=== PATIENT | female | born 2000 | race Caucasian/White ===

== ENCOUNTER 2020-07-21 14:16 | Emergency (ER) | payer OTHER, SELFPAY ==
[2020-07-21 14:25] VITALS: BP 124/85; PULSE 63; RESP 14; TEMP 36.6; O2SAT 99; BMI 23.1
--- NOTE | 2020-07-21 14:43 | CTR_ITS ---
PROCEDURE INFORMATION: Exam: CT Abdomen And Pelvis Without Contrast Exam date and time: 07/21/2020 2:55 PM Age: 20 years old Clinical indication: Right-sided abdominal pain. Right flank pain radiating to the groin. Prior cholecystectomy and appendectomy. TECHNIQUE: Imaging protocol: Computed tomography of the abdomen and pelvis without contrast. Radiation optimization: All CT scans at this facility use at least one of these dose optimization techniques: automated exposure control; mA and/or kV adjustment per patient size (includes targeted exams where dose is matched to clinical indication); or iterative reconstruction. COMPARISON: No relevant prior studies available. RADIATION DOSE METRICS: Total DLP (mGy-cm): 510.34 FINDINGS: Lungs: The lung bases are unremarkable. No pericardial effusion. No hiatal hernia. Liver: The liver is unremarkable. Gallbladder and bile ducts: The gallbladder has been removed. Pancreas: The pancreas is unremarkable. Spleen: The spleen is unremarkable. Adrenal glands: The adrenal glands are unremarkable. Kidneys and ureters: There is an obstructive 2.8 mm stone in the distal right ureter with mild resultant hydronephrosis and perinephric stranding. Nonobstructive left renal stones are seen. Stomach and bowel: The stomach and small bowel are unremarkable. The colon is unremarkable. Appendix: There has been prior appendectomy. Intraperitoneal space: No free intraperitoneal air is seen. Vasculature: No abdominal aortic aneurysm. Lymph nodes: No retroperitoneal lymphadenopathy. Urinary bladder: The bladder is decompressed. Reproductive: The uterus and adnexa are grossly unremarkable. Bones/joints: No acute fracture is identified. CT/CT kidney stone [id number] IMPRESSION: There is an obstructive 2.8 mm stone in the distal right ureter with mild resultant hydronephrosis and perinephric stranding. Nonobstructive left renal stones are seen. Radiation Dose CTDIVOL = (mGy): DLP = 510.34 (mGy-cm)
--- NOTE | 2020-07-21 14:45 | ED_ITS ---
HPI - Female Genitourinary General: Chief complaint: Abdominal Pain Stated complaint: SEVERE AB/BACK PAIN Time Seen by Provider: 07/21/20 14:35 History of Present Illness: HPI Narrative: Patient traveling to area today. And she developed early this morning right-sided flank pain that is radiating down to her right groin. Patient says she cannot sit still because of the pain. Also started her menstrual cycle today. Having urinary frequency with oliguria. Denies any nausea and vomiting has had her gallbladder and appendix taken out age 16. Denies vaginal discharge. Is sexually active. Denies any fever. MD elicited complaint: flank pain Onset (ago): hour(s) Location of symptoms: flank Severity: moderate Female Urogenital Radiation: R Flank Severity scale (1-10): 5 Quality of pain: dull and stabbing Consistency: constant and progressively worsening Vaginal discharge: none Vaginal bleeding: other (On menstrual cycle starting today) Urinary symptoms: Flank Pain and Urgency Exacerbating factors: none Relieving factors: none Associated symptoms: Reports no associated symptoms; Deny abdominal pain, headache(s) or nausea Treatment prior to arrival: none Sexual activity: Yes Possible : unsure if (Started menstrual cycle today) Review of Systems Const: Denies: fever(s), chills or body aches Eyes: Denies: change in vision or blurry vision ENMT: Denies: throat pain or nasal congestion Card: Denies: chest pain or dyspnea on exertion Resp: Denies: dyspnea, productive cough or non-productive cough GI: Denies: abdominal pain, nausea or vomiting : Reports: flank pain, urinary frequency, urinary urgency, oliguria and other (On menstrual cycle) Musc: Denies: extremity pain Skin/Breast: Denies: rash Neuro: Denies: headache(s) Psych: Denies: anxiety or depression Primitivo/Lymph: Denies: easy bruising Physical Exam Const: COMMON NORMALS: no acute distress, average body habitus and patient oriented x3 HENMT: COMMON NORMALS: normocephalic HEAD & SCALP: normal to inspection and normocephalic FACE & SINUS: normal facial exam Eye: COMMON NORMALS: conjunctivae normal GENERAL EYE: appearance normal, both eyes and all related structures CONJUNCTIVA: Yes conjunctivae normal Neck/C-Spine: COMMON NORMALS: no JVD Chest: COMMONS NORMALS: normal inspection of the chest Resp: COMMON NORMALS: normal respiratory effort and clear to auscultation bilaterally AUSCULTATION: clear to auscultation bilaterally Cardio: COMMON NORMALS: no JVD, regular rate and regular rhythm RATE: regular rate RHYTHM: regular rhythm GI: COMMON NORMALS: Normal to inspection, nondistended, normoactive bowel sounds present PALPATION: Yes Tenderness to palpation present (GI) Details: RLQ : BLADDER/KIDNEY EXAM: Yes CVA tenderness on the right Back/Pelvis: GENERAL BACK: Yes CVA tenderness Extremity: COMMON NORMALS: normal to inspection and full ROM Neuro: COMMON NORMALS: patient oriented x3 Course Vital Signs: Vital signs: Vital Signs Temperature 97.8 F 07/21/20 14:25 Pulse Rate 78 07/21/20 16:08 Respiratory Rate 18 07/21/20 16:08 Blood Pressure 130/84 07/21/20 16:08 Pulse Oximetry 99 07/21/20 16:08 MDM - Female MDM Narrative: Medical decision making narrative: Patient's pain service morning while driving this area to head for [place]. Patient not in acute distress vital signs stable patient will follow up with PCP tomorrow or Wednesday in [facility]. Discharge Plan Discharge Patient Disposition: Home Clinical Impression: Hydronephrosis with renal calculous obstruction Condition: Stable Prescriptions: New hydrocodone-acetaminophen 5-325 mg tablet 1 tab PO TID PRN (Reason: pain) Qty: 20 RF: 0 Flomax 0.4 mg capsule 0.4 mg PO DAILY Qty: 7 RF: 0 Zofran 4 mg tablet 4 mg PO Q8H 3 Days Qty: 9 RF: 0 Discharge Orders: Discharge ED (Routine); Ordered 07/21/20 Ordered By: Nader Puentes Discharge Diet: Usual diet Discharge Activity: Increase activity as tolerated Patient Instructions: Kidney Stones (ED), How to Strain Your Urine (ED), Opioid Safety Activity Restrictions/Additional Instructions: Follow-up with medical provider as directed. Take medications as prescribed. Return to the ER or your medical provider if condition worsens. Please read and understand discharge instructions. If any questions ask please. Make sure you strain your urine. Make sure you follow-up your primary care provider tomorrow or Wednesday. 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
[2020-07-21 14:48] VITALS: BP 130/84; PULSE 78; RESP 18; O2SAT 99
--- NOTE | 2020-07-21 14:50 | PC.PHAR ---
pt states she takes no medications or otc meds-pt states she has been off of her microgestin for a month and a half
[2020-07-21] MEDS: ketorolac 60 mg/2 mL INJ IM (15:19)
[2020-07-21] MEDS: ondansetron 4 MG Tablet PO (16:00)
[2020-07-21] MEDS: HYDROcodone-acetaminophen 7.5-325 mg Tablet 1 TAB PO (16:00)
[2020-07-21 16:08] VITALS: BP 130/84; PULSE 78; RESP 18; O2SAT 99
[2020-07-21 16:44] LABS: HCG Qualitative Urine. Negative (Negative)
[2020-07-21 16:45] LABS: Add Urine Microscopic? YES; Bilirubin Urine 1+ (Negative); Blood Urine 3+ (Negative); Glucose Urine UA Norm (Normal); Ketones Urine Negative (Negative); Leukocyte Esterase Urine Negative (Negative); Nitrate Urine Negative (Negative); Protein Urine Neg (Negative); Urine Appearance Cloudy (CLEAR); Urine Color Yellow (Yellow); Urobilinogen Urine Norm (Negative); pH Urine 5 (5-7)
[2020-07-21 16:49] LABS: Amorphous Sediment Urine 4+ /hpf; Bacteria Urine TRACE /hpf; Mucus Urine TRACE /hpf; Squamous Epithelial Cell Urine 0-4 /hpf (0-5)
[2020-07-21 16:50] LABS: Add Urine Culture? No
== END 2020-07-21 16:08 | disposition home or self-care (01) ==
PROVIDERS: Emergency Provider Nurse Practitioner Family
DX: N13.2 Hydronephrosis with renal and ureteral calculous obstruction (principal)
CPT/HCPCS: 74176; 81001; 81025; 96372; 99283; J1885; Q0162